=== PATIENT | male | born 1985 | race Caucasian/White ===

== ENCOUNTER 2019-11-22 10:27 | Emergency (ER) | payer SELFPAY ==
[~2019-11-22] VITALS: Ht 175.3 cm; Wt 90.9 kg
[2019-11-22 10:40] VITALS: TEMP 98.1
[2019-11-22 11:00] LABS: BASO # 0.1 (0.0-0.2); BASO % 0.7 % (0.0-2.0); EOS % 13.3 % (0-4.0); GRAN # 7.8 (1.4-6.5); GRAN % 51.4 % (42.2-75.2); HEMATOCRIT 45.9 % (42.0-52.0); HEMOGLOBIN 15.1 g/dl (13.5-18.0); LYMPH # 4.4 (1.2-3.4); LYMPH % 28.8 % (20.0-51.0); MEAN CELL VOLUME 84 fl (80.0-100.0); MEAN CORPUSCULAR HEMOGLOBIN 28 pg (27.0-31.0); MEAN CORPUSCULAR HGB CONC 33 g/dl (33.0-37.0); MEAN PLATELET VOLUME 9.6 fl (7.4-10.4); MONO # 0.8 (0.1-0.6); MONO % 5.4 % (1.7-9.3); PLATELET COUNT 270 K/mm3 (130-400); REDCELL DISTRIBUTION WIDTH-CV 13.2 % (11.5-14.5)
[2019-11-22 11:04] LABS: INR 1.1 (0.8-3.0); PROTHROMBIN TIME 12.5 SECONDS (9.7-12.8)
[2019-11-22 11:10] LABS: ALBUMIN 4.5 gm/dL (3.5-5.0); CALCIUM 9.3 mg/dL (8.4-10.2); CREATININE, serum 0.89 (0.66-1.25); POTASSIUM 3.9 mmol/L (3.4-5.0); TOTAL PROTEIN 7.7 gm/dL (6.4-8.2)
[2019-11-22] MEDS ORDERED: CEPHALEXIN500 M1 PO (14:40)
[2019-11-22] MEDS ORDERED: PERCOCET 325 MG1 TA2 PO (14:40)
[2019-11-22 14:52] VITALS: BP 141/92; PULSE 98
== END 2019-11-22 14:52 | disposition home or self-care (01) ==
LOC: COL.ER 10:27
PROVIDERS: Physician Assistant
DX: S09.90XA Unspecified injury of head, initial encounter (principal); S36.039A Unspecified laceration of spleen, initial encounter; S81.812A Laceration without foreign body, left lower leg, initial encounter; S00.03XA Contusion of scalp, initial encounter; Z23 Encounter for immunization; W12.XXXA Fall on and from scaffolding, initial encounter; Y92.59 Other trade areas as the place of occurrence of the external cause
CPT/HCPCS: J0690; J1170; J2405; J3010; J7120; Q9967